=== PATIENT | female | born 1940 | race Caucasian/White ===

== ENCOUNTER 2021-07-23 17:11 | Observation (INO) | payer OTHER, SELFPAY ==
[~2021-07-23] VITALS: Ht 157.5 cm; Wt 71.7 kg
[2021-07-23] MEDS: NACL 0.9% 1,000 ML IV SCH (04:00)
[2021-07-23 17:35] VITALS: BP 146/69
--- NOTE | 2021-07-23 17:45 | NUR ---
PT TAKEN TO ER BED 6 WITH A STEADY GAIT.
--- NOTE | 2021-07-23 18:12 | NUR ---
81 Y/O FEMALE C/O LAC WOUND AT [place] S/P FALL AT [place] IN THE BOX EARLIER TODAY. DENIES LOC. DENIES N/V, DENIES FEVER/CHILLS. PT IS A&OX4, GCS15, NO ACTIVE BLEEDING NOTED. PMH: LEFT MASTECTOMY, HTN, HLD, BLOOD CLOT NKA
--- NOTE | 2021-07-23 18:32 | NUR ---
DR CHU AT BEDSIDE.
--- NOTE | 2021-07-23 18:48 | NUR ---
XRAY AT BEDSIDE
--- NOTE | 2021-07-23 19:02 | NUR ---
CLEANED PATIENT WOUND ON THE BACK OF HER HEAD WITH NORMAL SAILINE BEDSIDE
--- NOTE | 2021-07-23 19:09 | NUR ---
TO CT SCAN.
--- NOTE | 2021-07-23 19:17 | NUR ---
Pt report given to ANNABELLA RAMIREZ. Transfer of care at this time.
--- NOTE | 2021-07-23 19:59 | NUR ---
PT IS BACK FROM CT. FOCUSED ASSESMENT DONE. PAIN 3/10 TO BACK OF HEAD. NO EXCESSIVE BLEEDING NOTED. NEURO INTACT.
--- NOTE | 2021-07-23 20:50 | NUR ---
Dr. Almeida examining patient.
--- NOTE | 2021-07-23 21:00 | NUR ---
ERMD AT BESIDE TO STAPLE HEAD LAC PRESSURE DRESSING APPLIED. PT TO REMAIN FOR OBS.
[2021-07-23] MEDS ORDERED: ACETAMINOPHEN 325 MG TAB PO PRN (22:25)
[2021-07-23] MEDS ORDERED: MORPHINE SULFATE 2 MG/ML SYR IVP PRN (22:25)
[2021-07-23] MEDS ORDERED: ONDANSETRON 4 MG/2 ML VIAL IVP PRN (22:25)
[2021-07-23] MEDS ORDERED: HYDROcodone/APAP 5/325 MG 1 TAB TAB PO PRN (22:25)
[2021-07-23] MEDS ORDERED: LORazepam 2 MG/ML VIAL IVP PRN (22:25)
--- NOTE | 2021-07-24 01:45 | NUR ---
NO CHANGES NOTED IN PT STATUS. CONTINUES IN DEPT FOR OBS. APPEARS ASLEEP WITH RRE/U EASILY AROUSABLE WITH VERBALE STIMULI. BLEEDING REMAINS CONTROLLED. NAD NOTED.
--- NOTE | 2021-07-24 03:00 | NUR ---
CONTINUES IN DEPT NO BLEEDING NOTED TO HEAD LAC. RRE/U. APPEARS ASLEEP WITH EYES CLOSED. EASILY AROUSABLE WITH VERBAL STIMULI. NAD NOTED NEURO INTACT.
[2021-07-24] MEDS ORDERED: METO25TA PO (05:31)
[2021-07-24] MEDS ORDERED: APIX5TAB PO (05:31)
[2021-07-24] MEDS ORDERED: ANAS1TAB56 PO (05:31)
[2021-07-24] MEDS ORDERED: SIMV20TA1 PO (05:31)
--- NOTE | 2021-07-24 05:40 | NUR ---
C/O HEAD PAIN "BEHIND EYES" 3/10 ASKING FOR TYLENOL. ASSISTED TO REPOSITION. MEDICATED PER ORDERS NO BLEEDING NOTED TO LAC AND NO OTHER CHANGES NOTED TO PT HEALTH STATUS.
--- NOTE | 2021-07-24 06:52 | NUR ---
PAIN NOW 10/19
[2021-07-24 07:08] LABS: BASOPHILS % (AUTO) 0.4 % (0.0-2.0); EOSINOPHILS # (AUTO) 0.1 K/uL (0-0.4); EOSINOPHILS % (AUTO) 2.6 % (0.0-4.0); HEMOGLOBIN 12.1 g/dL (12.0-16.0); LYMPHOCYTES # (AUTO) 1.5 K/uL (2.5-16.5); MEAN CORPUSCULAR HEMOGLOBIN 30 pg (27-31); MEAN CORPUSCULAR HGB CONC 34 g/dL (33-37); MEAN CORPUSCULAR VOLUME 90.4 fL (80-94); MONOCYTES # (AUTO) 0.6 K/uL (0.8-1.0); MONOCYTES % (AUTO) 11.4 % (1.7-9.3); NEUTROPHILS % (AUTO) 56.6 % (42.2-75.2); PLATELET COUNT (AUTO) 192 K/uL (140-450); RED BLOOD CELL COUNT(AUTO) 3.98 MIL/uL (4.20-5.40); RED CELL DISTRIBUTION WIDTH 12.8 % (11.6-13.7); WHITE BLOOD COUNT (AUTO) 5.3 K/uL (4.8-10.8)
--- NOTE | 2021-07-24 07:10 | NUR ---
REPORT TO MABEL ALL QUESTIONS ANSWERED
[2021-07-24 07:28] LABS: ALBUMIN 2.9 g/dL (3.4-5.0); ANION GAP 12.7 (8-16); ASPARTATE AMINOTRANSFERASE 22 U/L (15-37); CARBON DIOXIDE 27.2 mmol/L (21-32); CHLORIDE 105 mmol/L (98-107); CREATININE 0.6 mg/dL (0.6-1.3); GLUCOSE 105 mg/dL (74-106); MAGNESIUM 1.9 mg/dL (1.8-2.4); POTASSIUM 3.9 mmol/L (3.5-5.1); SODIUM SERUM 141 mmol/L (136-145); TOTAL BILIRUBIN 0.7 mg/dL (0.0-1.0); UREA NITROGEN, BLOOD 8 mg/dL (7-18)
[2021-07-24 07:35] LABS: CREATINE KINASE MB 0.8 ng/mL (0-3.6)
--- NOTE | 2021-07-24 08:00 | NUR ---
PT A&O X4. NO COMPLAINT OF PAIN AT THIS TIME. UP EATING BREAKFAST AT THE SIDE OF THE BED. IN GOWN, ON THE MONITOR, VS WNL WITH EVEN AND UNLABORED BREATHING. PT AMBULATED WITH WALKER ASSIST TO THE RESTROOM SUCCESSFULLY WITH NO IMBALANCE. AWAITING FOR ADMITTED BED. WILL CONTINUE TO MONITOR.
[2021-07-24] MEDS: NACL 0.9% 1,000 ML IV SCH (11:05)
--- NOTE | 2021-07-24 16:10 | NUR ---
PATIENT HAS BEEN SCREENED AND CATEGORIZED LOW NUTRITION RISK. PATIENT WILL BE SEEN WITHIN 7 DAYS OF ADMISSION. 07/30/[address]
--- NOTE | 2021-07-24 16:13 | NUR ---
Patient discharged as inpatient admit by Dr. Farah with v/s stable. Written and verbal after care instructions given and explained. Patient verbalized understanding. Ambulatory with walker assist with steady gait. All questions addressed prior to discharge. Advised to follow up with PMD.
[2021-07-24 16:15] VITALS: BP 138/68
--- NOTE | 2021-07-24 16:20 | NUR ---
DC PLANNING: ORDERS RECEIVED FOR HOME HEALTH P.T., MICHELLE WILL FOLLOW UP WITH THE CM AT [facility] TO ARRANGE FOR HOME HEALTH POST DISCHARGE. CM WILL FOLLOW NEEDED. Addendum: 07/25/21 at 0905 by Evelyn Galdamez CM DC PLANNING: CM SPOKE WITH MICHELLE CAR AT [facility] REGARDING THE ORDER FOR HOME HEALTH P.T.. ORDERS AND P.T. NOTES FAXED TO HIM. HE STATES THAT HE WILL SET UP HOME HEALTH FOR THE PATIENT. CM WILL FOLLOW FOR NEEDS. Addendum: 07/25/21 at 1345 by Evelyn Galdamez CM DC PLANNING: MICHELLE CONFIRMED WITH JOCELINE AT [facility] THAT THE PATIENT HAS BEEN SET UP WITH HOME HEALTH P.T., [facility]. CM WILL FOLLOW NEEDED.
--- NOTE | 2021-07-26 02:21 | NUR ---
LATE ENTRY--- 0.9% NS IVF DISCONTINUED AT 1610
--- NOTE | 2021-08-01 14:23 | NUR ---
LATE ENTRY- IV FLUIDS NS DISCONTINUED AT 0400.
== END 2021-07-24 16:13 | disposition home or self-care (01) ==
LOC: MED 17:11 → MTU 22:26
PROVIDERS: ADMIT Internal Medicine; ATTEND Internal Medicine
DX: S01.01XA Laceration without foreign body of scalp, initial encounter (principal); Z20.822 Contact with and (suspected) exposure to COVID-19; I82.403 Acute embolism and thrombosis of unspecified deep veins of lower extremity, bilateral; I10 Essential (primary) hypertension; E78.5 Hyperlipidemia, unspecified; Z85.3 Personal history of malignant neoplasm of breast; Z90.12 Acquired absence of left breast and nipple; Z79.899 Other long term (current) drug therapy; Z79.01 Long term (current) use of anticoagulants; Z23 Encounter for immunization; W01.0XXA Fall on same level from slipping, tripping and stumbling without subsequent striking against object, initial encounter; Y93.89 Activity, other specified; Y92.89 Other specified places as the place of occurrence of the external cause
CPT/HCPCS: 12002; 36415; 70450; 71045; 72125; 72170; 80053; 82550; 82553; 83735; 84484; 85025; 87426; 90471; 90715; 96360; 96361; 97116; 97163; 99285; G0378; Q0092